=== PATIENT | male | born 1980 ===

== ENCOUNTER 2021-04-19 14:31 | Emergency (ER) | payer SELFPAY ==
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
== END 2021-04-19 19:15 | disposition home or self-care (01) ==
LOC: MW.ED 14:31
DX: Z00.8 Encounter for other general examination (principal); F07.81 Postconcussional syndrome; G44.309 Post-traumatic headache, unspecified, not intractable
CPT/HCPCS: 99283

== ENCOUNTER 2023-09-03 03:07 | Emergency (ER) | payer SELFPAY | END 2023-09-03 03:09 | disposition left against medical advice (07) | LOC: MW.ED 03:07 | DX: Z53.21 Procedure and treatment not carried out due to patient leaving prior to being seen by health care provider (principal) ==